=== PATIENT | male | born 1965 | race Caucasian/White ===

== ENCOUNTER 2018-01-26 14:48 | Emergency (ER) | payer OTHER ==
[~2018-01-26] VITALS: Ht 170.2 cm; Wt 104.0 kg
[~2018-01-26 14:48] MED LIST: ACET-749 PO; ALBUAER INH; DICL-201 PO; [UNRECOGNIZED DRUG - REMARK] TOP
[2018-01-26 14:51] VITALS: TEMP 36.4; Ht 170.2 cm; Wt 104.0 kg
[2018-01-26] MEDS ORDERED: SODIUM CHLORIDE 0.9% 1000ML 1,000 ML IV STA (15:12)
[2018-01-26] MEDS ORDERED: ONDANSETRON INJ 2 MG/ML 2 ML VIAL IV STA (15:12)
[2018-01-26] MEDS ORDERED: HYDROmorphone INJ 1 MG/ML SYR IV STA (15:12)
[2018-01-26] MEDS ORDERED: OPTIRAY 320 IV PRN (15:30)
[2018-01-26 15:59] LABS: BASO % 0.1 %; BASO ABS # 0.01 K/uL (0-0.2); EOS % 1.7 %; EOS ABS # 0.12 K/uL (0-0.5); HEMATOCRIT 46.7 % (42-52); HEMOGLOBIN 16.6 g/dL (14.0-18.0); IG# 0.02 K/uL (0.00-0.02); LYMPH % 14.2 %; LYMPH ABS # 1.03 K/uL (1.2-3.4); MEAN CELL VOLUME 95.5 fL (80-100); MEAN CORPUSCULAR HEMOGLOBIN 33.9 pg (25-34); MEAN CORPUSCULAR HGB CONC 35.5 g/dl (32-36); MONO % 7.6 %; MONO ABS # 0.55 K/uL (0.11-0.59); NEUT % 76.1 %; NEUT ABS # 5.53 K/uL (1.4-6.5); PLATELET COUNT 131 K/uL (130-400); RED CELL DISTRIBUTION WIDTH SD 48.6 fL (36.4-46.3); WHITE BLOOD COUNT 7.26 K/uL (4.8-10.8)
[2018-01-26 16:16] LABS: ALBUMIN 3.9 gm/dl (3.4-5.0); CALCIUM 9.4 mg/dl (8.5-10.1); CREATININE 0.92 mg/dl (0.60-1.40)
[2018-01-26 16:19] LABS: TOTAL PROTEIN 8.3 gm/dl (6.4-8.2)
[2018-01-26] MEDS ORDERED: VNTHFA/IN INH (16:59)
[2018-01-26] MEDS ORDERED: FLUT1INH INH (16:59)
[2018-01-26] MEDS ORDERED: PLV75 PO (17:04)
[2018-01-26] MEDS ORDERED: ATOR-26 PO (17:04)
[2018-01-26] MEDS ORDERED: OMEP20CA9 PO (17:04)
[2018-01-26] MEDS ORDERED: ISOS-11 PO (17:04)
[2018-01-26] MEDS ORDERED: ASPI81TA25 PO (17:05)
[2018-01-26] MEDS ORDERED: LISI-788 PO (17:05)
[2018-01-26] MEDS ORDERED: GABA-1219 PO (17:05)
[2018-01-26] MEDS ORDERED: [UNRECOGNIZED DRUG - CODE] TOP (17:05)
--- NOTE | 2018-01-26 17:36 | DIAGNOSTIC IMAGING REPORT ---
ABD/PELVIS IV CONTRAST ONLY CT DOSE: 668.49 mGy.cm HISTORY: Pain Return of umbilical bulging and pain TECHNIQUE: Multiaxial CT images of the abdomen and pelvis were performed following the use of intravenous contrast. A dose lowering technique was utilized adhering to the principles of ALARA. COMPARISON STUDY: 07/06/2016 FINDINGS: Lung bases are clear. Liver spleen and pancreas appear unremarkable. There is been a prior cholecystectomy. Kidneys enhance uniformly. Bowel pattern is remarkable for mild small bowel distention proximal and mid small bowel as well as a anastomotic line in the right mid abdominal region. A potential mild transition point is at considerable scar tissue in the periumbilical region as well as a suture line right anterior mid abdomen. Colonic bowel pattern is nonobstructive. Bladder is midline. There are postoperative changes in the mid sigmoid. A small fat-containing inguinal hernias. There is no evidence of bowel containment.. This appears to be at the site of operative repair of a small periumbilical hernia. Soft tissue extends to the a location immediately deep to the umbilicus. There is no evidence of bowel containment. The anterior abdominal wall appears to be in general intact. IMPRESSION: 1. Considerable scar tissue involving the subcutaneous fat deep to the umbilicus and periumbilical region. 2. Operative changes consistent with bowel anastomotic sites in the right mid abdomen and low pelvis. There is a transition of caliber right midabdominal anastomotic line which potentially is creating partial small bowel obstructive change. 3. Operative repair of a small periumbilical hernia with considerable postoperative scar and granulation tissue. Recurrence of the hernia is not felt to be present with a palpable abnormality potentially related to the abundant scar tissue. 4. Bilateral inguinal hernias showing no bowel containment. The above report was generated using voice recognition software. It may contain grammatical, syntax or spelling errors. Electronically signed by: Constantin Sanchez M.D. 01/26/2018 5:35 PM Dictated Date/Time: 01/26/2018 5:28 PM
[2018-01-26] MEDS ORDERED: OXYC-57 PO (18:02)
[2018-01-26 18:23] VITALS: BP 112/68; PULSE 62; O2SAT 97
--- NOTE | 2018-01-26 23:53 | EMERGENCY ROOM VISIT NOTE ---
ED Visit Note First contact with patient: 14:57 Chief Complaint: Abdominal pain. History of Present Illness: Mr. Hogue is a 52 year-old white male who ambulates into the ED complaining of left lower quadrant abdominal pain. Historically patient reports diverticulitis requiring a partial colectomy and after his colectomy he required additional ileostomy for leakage of his surgical site. Additionally he reports he had an incarcerated umbilical hernia repair in August of last year and had a subsequent abscess at his surgical site that required an I&D. Patient reports a ongoing severe abdominal pain for the last 3 days. Patient is in the left lower quadrant approximately 2-3 cm inferior to his surgical site for his umbilical hernia repair. Currently he describes his pain as a sharp twisting sensation. He rates his discomfort 10/10. His pain is nonradiating. His pain worsens with palpation and flexion at the waist. He has not identified any alleviating factors related to the pain. He reports he has been taken Tylenol without relief of his discomfort. Associated with his pain he notes he seen and lump in the area of his pain and he has had a decreased appetite and nausea without vomiting. He denies any fevers, chills, sweats, skin eruptions, skin color changes, upper respiratory tract symptoms, shortness of breath, chest pain, diarrhea, constipation, rectal bleeding, black/tarry stools, urinary symptoms, hematuria, back/flank pain. Review of Systems: As noted above in history of present illness. All body systems were reviewed and found to be negative as noted above. Past Medical History: As previously noted and asthma, hypertension, heart disease, and status post cholecystectomy. Current Medications: Medications Dose Route/Sig Max Daily Dose Days Date Category Dose Instructions Zestoretic 20MG/25MG (HCTZ/Lisinopril) Tab 0.5 Tab PO DAILY 01/26/18 Reported Betamethasone Dipropionat (Betamethasone Dip) 240 Gm Cr 1 Appln TOP BID PRN 01/26/18 Reported Gabapentin 300 Mg Cap 300 Mg PO TID 01/26/18 Reported Aspir-Low (Aspirin) 81 Mg Tab 81 Mg PO DAILY 01/26/18 Reported Prilosec (Omeprazole) 20 Mg Cap 20 Mg PO DAILY 01/26/18 Reported Isosorbide Mononitrate ER (Isosorbide Mononitrate) 30 Mg Tabcr 30 Mg PO DAILY 01/26/18 Reported Clopidogrel (Clopidogrel Bisulfate) 75 Mg Tab 75 Mg PO DAILY 01/26/18 Reported Lipitor (Atorvastatin Calcium) 80 Mg Tab 80 Mg PO QAM 01/26/18 Reported Breo Ellipta (Fluticasone Furoate-Vilanterol) 1 Inh Inh 1 Puff INH QAM 01/26/18 Reported Ventolin Hfa (Albuterol) 200 Puffs/79110 Mcg Aers 2 Puffs INH QID PRN 01/26/18 Reported Allergies to Medications: Penicillin. Social History: Patient is not employed; he feels safe in his home environment; he admits to tobacco use and denies alcohol use. Physical Examination: Vital Signs: Date Time Temp Pulse Resp B/P (MAP) Pulse Ox O2 Delivery O2 Flow Rate FiO2 01/26/18 18:23 62 20 112/68 97 01/26/18 18:11 62 20 112/68 97 Room Air 01/26/18 17:00 54 18 127/67 95 Room Air 01/26/18 14:51 36.4 63 20 152/91 98 Room Air GENERAL: 52-year-old male in moderate distress due to pain, nontoxic-appearing, afebrile and hemodynamically stable. NEUROLOGICAL: Awake, alert and oriented to person, place and time. Answering questions appropriately and following commands. Normal gait. Good hand eye coordination. SKIN: Warm, dry and pink. No soft tissue eruptions or trauma noted. HEENT: Atraumatic and normocephalic. PERRLA. Sclera white and conjunctiva pink. Oral cavity moist and pink. Pharynx is nonerythematous or edematous. Speech normal. No lymphadenopathy. Trachea midline. No jugular venous distention. BACK: No tenderness over the bony spine. No CVA tenderness. THORAX: Lungs sounds are clear to auscultation and equal bilaterally with symmetrical chest wall. No wheezing, rales or rhonchi. No crepitus, tenderness , subcutaneous air or deformities noted. HEART: Regular rate and rhythm. No gallops, rubs or murmurs are appreciated. ABDOMEN: Mildly distended with moderate tenderness in the upper portion of the left lower quadrant in the area of his previous surgery. There is a lump in this area consistent with a herniated mass. Decreased bowel sounds throughout and no bowel sounds in the area of this possible herniation. There was mild guarding on palpation but no rigidity. EXTREMITIES: Moves all extremities well on command and with purpose. All distal neurovascular statuses are intact and equal bilaterally. ED Course: Patient is assessed as noted above. Patient's medication list was reviewed. Laboratory Testing: Test 01/26/18 15:42 Range/Units White Blood Count 7.26 4.8-10.8 K/uL Red Blood Count 4.89 4.7-6.1 M/uL Hemoglobin 16.6 14.0-18.0 g/dL Hematocrit 46.7 42-52 % Mean Corpuscular Volume 95.5 80-100 fL Mean Corpuscular Hemoglobin 33.9 25-34 pg Mean Corpuscular Hemoglobin Concent 35.5 32-36 g/dl Platelet Count 131 130-400 K/uL Mean Platelet Volume 13.0 7.4-10.4 fL Neutrophils (%) (Auto) 76.1 % Lymphocytes (%) (Auto) 14.2 % Monocytes (%) (Auto) 7.6 % Eosinophils (%) (Auto) 1.7 % Basophils (%) (Auto) 0.1 % Neutrophils # (Auto) 5.53 1.4-6.5 K/uL Lymphocytes # (Auto) 1.03 1.2-3.4 K/uL Monocytes # (Auto) 0.55 0.11-0.59 K/uL Eosinophils # (Auto) 0.12 0-0.5 K/uL Basophils # (Auto) 0.01 0-0.2 K/uL RDW Standard Deviation 48.6 36.4-46.3 fL RDW Coefficient of Variation 14.0 11.5-14.5 % Immature Granulocyte % (Auto) 0.3 % Immature Granulocyte # (Auto) 0.02 0.00-0.02 K/uL Sodium Level 136 136-145 mmol/L Potassium Level 4.0 3.5-5.1 mmol/L Chloride Level 103 98-107 mmol/L Carbon Dioxide Level 26 21-32 mmol/L Anion Gap 7.0 3-11 mmol/L Blood Urea Nitrogen 10 7-18 mg/dl Creatinine 0.92 0.60-1.40 mg/dl Est Creatinine Clear Calc Drug Dose 109.2 ml/min Estimated GFR () 111.2 Estimated GFR (Non- 96.0 BUN/Creatinine Ratio 10.4 10-20 Random Glucose 104 70-99 mg/dl Calcium Level 9.4 8.5-10.1 mg/dl Total Bilirubin 1.0 0.2-1 mg/dl Direct Bilirubin 0.2 0-0.2 mg/dl Aspartate Amino Transf (AST/SGOT) 34 15-37 U/L Alanine Aminotransferase (ALT/SGPT) 49 12-78 U/L Alkaline Phosphatase 64 45-117 U/L Total Protein 8.3 6.4-8.2 gm/dl Albumin 3.9 3.4-5.0 gm/dl Lipase 83 73-393 U/L Contrast Abdominal/Pelvic CT: Was reviewed by myself and read by the radiologist showing considerable scar tissue involving the subcutaneous fat deep of the umbilicus and periumbilical region, operative changes consistent with bowel anastomosis site in the right mid abdomen and low pelvis, operative repair of a small periumbilical hernia with considerable postoperative scarring and granulated tissues but a recurrence of the hernia is not felt present at this time and bilateral inguinal hernias with no bowel contained. Additionally radiologist notes that the transition caliber in the right mid abdomen anastomosis has the potential of creating a partial small bowel obstruction. Patient was hydrated with normal saline and given 1 mg of Dilaudid IV for pain and 4 mg of Zofran IV. On my initial examination I did attempt to reduce the possible hernia site without success. When patient returned from his CT I reevaluated him and he subjectively reported he was feeling much better and when I palpated his abdomen he had resolution of his lump in the abdomen that I thought was a possible herniation. Patient's case was reviewed with Dr. Radford; we agreed on diagnostic approach , treatment, disposition and plan. Patient was educated about today's findings and instructed on his treatment plan ; he verbalized understanding and agreement with this plan. Clinical Impression: Left lower quadrant abdominal pain. Decision-Making: Umbilical hernia, diverticulitis, abdominal abscess, perforated viscus and other causes. Disposition: Patient discharged home in stable condition accompanied by female friend; prior to departure he was reassessed and subjectively reported he was pain-free. Plan: Comfort measures were discussed with the patient including a sliding pain scale of 10 minute thin and Percocet; agents name was checked on state database and no red flags are noted and he was given appropriate narcotic precautions. Patient was encouraged to stay well-hydrated with increased clear fluids. Patient was encouraged to continue his other medications as prescribed. Patient reports she has an upcoming appointment with a general surgery for reevaluation of his abdomen. Patient was encouraged to return the ED for worsening pain, reappearance of his herniation, vomiting, fevers or any new/concerning symptoms.
== END 2018-01-26 18:24 | disposition home or self-care (01) ==
LOC: C.EDB 14:50
DX: R10.32 Left lower quadrant pain (principal); Z87.19 Personal history of other diseases of the digestive system

== ENCOUNTER 2018-02-22 06:59 | Day surgery (SDC) | payer OTHER ==
[2018-02-08 13:26] VITALS: BMI 36.0
[~2018-02-22] VITALS: Ht 170.2 cm; Wt 105.9 kg
[~2018-02-22 06:59] MED LIST changes: -ACET-749 PO; -ALBUAER INH; +ASPI81TA25 PO; +ATOR-26 PO; +CLINDAMYCIN IV 900 MG in DEXTROSE 5% 50ML 44 ML IV SCH; -DICL-201 PO; +FLUT1INH INH; +GABA-1219 PO; +HEPARIN SOD 5000 UNIT/0.5 ML CARP SQ SCH; +ISOS-11 PO; +LACTATED RINGER'S 1000ML 1,000 ML IV SCH; +LISI-788 PO; +NTRGSL/4 UT; +OMEP20CA9 PO; +OXYC-57 PO; +PLV75 PO; +VNTHFA/IN INH; +[UNRECOGNIZED DRUG - CODE] TOP; -[UNRECOGNIZED DRUG - REMARK] TOP
[2018-02-22 07:16] VITALS: BP 116/79; PULSE 63; TEMP 36.4; O2SAT 96; Ht 170.2 cm; Wt 105.9 kg
--- NOTE | 2018-02-22 07:56 | History & Physical Bridge Note ---
H&P Re-Evaluation Bridge Note: I have examined the patient, reviewed the History & Physical and in the interval since the performance of the History & Physical I have noted the following changes of clinical significance: No changes noted
[2018-02-22] MEDS ORDERED: FENTANYL CITRATE INJ 50 MCG/1 ML 2 ML VIAL ONE ×2 (07:59→09:01)
[2018-02-22] MEDS ORDERED: MIDAZOLAM HCL 1 MG/ML 2ML VIAL ONE (07:59)
[2018-02-22] MEDS ORDERED: BUPIVACAINE/EPINEPHRINE 0.5% MPF 1:200,000 30 ML VIAL ONE (08:18)
[2018-02-22] MEDS ORDERED: KETOROLAC TROMETHAMINE 30 MG/ML VIAL IV. PRN (09:00)
[2018-02-22] MEDS ORDERED: ATROPINE SULFATE 0.1 MG/ML 5ML SYR IV PRN ×2 (09:00→09:45)
[2018-02-22] MEDS ORDERED: ONDANSETRON INJ 2 MG/ML 2 ML VIAL IV PRN ×3 (09:00→10:00)
[2018-02-22] MEDS ORDERED: LABETALOL HCL IV 5 MG/ML 20ML IV PRN ×2 (09:00→09:45)
[2018-02-22] MEDS ORDERED: HYDROmorphone INJ 1 MG/ML SYR IV PRN (09:00)
[2018-02-22] MEDS ORDERED: EpHEDrine SULFATE INJ 50 MG/ML AMP IV PRN ×2 (09:00→09:45)
[2018-02-22] MEDS ORDERED: MEPERIDINE HCL 25 MG/ML CARP IV PRN ×2 (09:00→09:45)
[2018-02-22] MEDS ORDERED: HYDROmorphone INJ 2 MG/ML SYR/VIAL ONE ×2 (09:42→10:21)
[2018-02-22] MEDS ORDERED: FENTANYL CITRATE INJ 50 MCG/1 ML 2 ML VIAL IV PRN (09:45)
[2018-02-22] MEDS ORDERED: HYDROmorphone INJ 2 MG/ML SYR/VIAL IV PRN (09:45)
--- NOTE | 2018-02-22 09:50 | [facility] Post Operative Brief Note ---
Immediate Operative Summary Operative Date Feb 22, 2018. Pre-Operative Diagnosis Incisional Hernia Post-Operative Diagnosis Same as preop with small bowel adhesions Procedure(s) Performed Open Incisional Hernia Repair; enterolysis Surgeon Dr. Bernal Oil Burner Surgeon(s) Rossy Coronel PA-C Estimated Blood Loss 10 ml Findings Consistent with Post-Op Diagnosis Specimens None per Surgeon Anesthesia Type General Complication(s) none
[2018-02-22] MEDS ORDERED: SODIUM CHLORIDE 0.9% 1000ML 1,000 ML IV SCH (09:56)
[2018-02-22] MEDS ORDERED: ROCURONIUM BROMIDE 10 MG/ML 5 ML VIAL IV ONE (09:58)
[2018-02-22] MEDS ORDERED: KETOROLAC TROMETHAMINE 30 MG/ML VIAL ONE (09:58)
[2018-02-22] MEDS ORDERED: LIDOCAINE HCL 2% 2 ML VIAL (20MG/ML) ONE (09:58)
[2018-02-22] MEDS ORDERED: RANITIDINE HCL 25 MG/ML INJ ONE (09:58)
[2018-02-22] MEDS ORDERED: OXYC-57 PO (09:58)
[2018-02-22] MEDS ORDERED: ONDANSETRON INJ 2 MG/ML 2 ML VIAL ONE (09:58)
[2018-02-22] MEDS ORDERED: GLYCOPYRROLATE INJ 0.2 MG/ML VIAL ONE (09:58)
[2018-02-22] MEDS ORDERED: METOCLOPRAMIDE HCL INJ 5 MG/ML 2 ML VIAL ONE (09:58)
[2018-02-22] MEDS ORDERED: NEOSTIGMINE METHYLSULFATE 5 MG/5 ML SYR ONE (09:58)
[2018-02-22] MEDS ORDERED: DEXAMETHASONE SOD INJ 4 MG/ML VIAL ONE (09:58)
[2018-02-22] MEDS ORDERED: PROPOFOL IV EMULSION 10 MG/ML 20 ML VIAL IV ONE (09:58)
[2018-02-22] MEDS ORDERED: SULF800T23 PO (09:59)
[2018-02-22] MEDS ORDERED: OXYCODONE/ACETAMINOPHEN 5-325 TAB PO PRN ×2 (10:00)
--- NOTE | 2018-02-22 10:03 | Discharge Instructions ---
Discharge Instructions Date of Service Feb 22, 2018. Admission Reason for Admission: Incisional Hernia Discharge Discharge Diagnosis / Problem: Incisional Hernia Discharge Goals Goal(s): Decrease discomfort, Improve function Activity Recommendations Activity Limitations: as noted below Lifting Limitations: no more than 10 pounds Exercise/Sports Limitations: until after follow-up appointment May Resume Sexual Activity: after follow-up appointment Shower/Bathe: tomorrow Driving or Machine Use: resume 3 days after discharge . Instructions / Follow-Up Instructions / Follow-Up You may remove your dressing after 24 hrs and remove the cotton. You have surgical glue, Dermabond, over your incision. You may shower tomorrow, but please do not soak or scrub your incision. Please continue to wear your abdominal binder until you follow-up with Dr. Bernal in the General Surgery Clinic. Please call the office at [phone] to make a follow-up appointment if you do not have one already. Please call the office with any questions or concerns. You have been prescribed an antibiotic, please take this antibiotic as prescribed and take until finished. You may resume your Clopidogrel tomorrow, 12/26/17 Current Hospital Diet Patient's current hospital diet: Discharge Diet Recommended Diet: Regular Diet Procedures Procedures Performed: Open Incisional Hernia Repair; enterolysis Pending Studies Studies pending at discharge: no Medical Emergencies . Who to Call and When: Medical Emergencies: If at any time you feel your situation is an emergency, please call 911 immediately. . Non-Emergent Contact Non-Emergency issues call your: Primary Care Provider, Surgeon Call Non-Emergent contact if: temperature is above 101.5, your pain is not controlled, wound has increased drainage, wound has increased redness . "Provider Documentation" section prepared by Rossy Coronel. . [place] Drug Monitoring Program Search Results: patient reviewed within database, no issues identified
--- NOTE | 2018-02-22 10:04 | [facility] Operative Report ---
Operative Report Operative Date Feb 22, 2018. Pre-Operative Diagnosis Incisional Hernia Post-Operative Diagnosis Same as preop with small bowel adhesions Procedure(s) Performed Open Incisional Hernia Repair; enterolysis Surgeon Dr. Bernal Ruling Technician Surgeon(s) Rossy Coronel PA-C Estimated Blood Loss 10 ml Specimens None per Surgeon Anesthesia Type General Complication(s) none Description of Procedure After informed consent was obtained the patient take to the operating room and placed in supine position. After successful intubation the abdomen was shaved and sterilely prepped and draped in usual fashion. I made an incision along his previous midline incision around the umbilicus in the area of the known hernia. This was carried down through the soft tissue using electrocautery. We did immediately encounter a hernia sac which we were able to open exposing some incarcerated small bowel. The bowel itself was not damaged but it was adhesed to the undersurface of the fascia. After excising the hernia sac I used traction countertraction and Metzenbaum scissors to take down these adhesions and eventually be able to dunk the small bowel back into the abdominal cavity. This left an approximately 2-3 cm discrete hernia defect. Th patient has a significant history of problems with prior wound infections this coupled with the fact that his abdominal wall was very thin in this area near the umbilicus led me to decide not to use a piece of mesh as the risk of skin erosion and infection outweighed the benefits. I therefore primarily close this defect using #1 Ethibond in interrupted [id number] fashion. It was relatively tension-free. Once I had this closed I thoroughly irrigated the wound. I closed in multiple layers using 2-0 Vicryl for deep layers 3-0 Vicryl for mid layers and 3-0 Monocryl for skin. Marcaine was injected around for postoperative analgesia and a sterile dressing and abdominal binder were applied. Patient was awaken extubated transferred recovery in stable condition My physician's litigation legal assistant was present for the entire case. She helped prep the patient. She helped with wound retraction throughout the case. She also helped with wound closure and dressing placement. I attest to the content of the Intraoperative Record and any orders documented therein. Any exceptions are noted below.
[2018-02-22 10:45] VITALS: BP 113/65; PULSE 63; TEMP 36.6; O2SAT 95
--- NOTE | 2018-02-22 11:12 | Anesthesiology Progress Note ---
Anesthesia Post Op Note Date & Time Feb 22, 2018 at 11:12 Vital Signs Pain Intensity: 6 Vital Signs Past 12 Hours Date Time Temp Pulse Resp B/P (MAP) Pulse Ox O2 Delivery O2 Flow Rate FiO2 02/22/18 10:45 36.6 63 18 113/65 95 Room Air 02/22/18 10:30 62 16 126/78 5 Room Air 02/22/18 10:20 68 16 122/86 99 Oxymask 7 02/22/18 10:10 65 16 132/90 98 Oxymask 7 02/22/18 10:00 36.5 67 16 143/84 98 Oxymask 7 02/22/18 07:16 36.4 63 20 116/79 (91) 96 Room Air Notes Mental Status: alert / awake / arousable, participated in evaluation Pt Amnestic to Procedure: Yes Nausea / Vomiting: adequately controlled Pain: adequately controlled Airway Patency, RR, SpO2: stable & adequate BP & HR: stable & adequate Hydration State: stable & adequate Anesthetic Complications: no major complications apparent
[2018-02-22 11:15] VITALS: BP 112/67; PULSE 67; O2SAT 95
[2018-02-22 11:33] VITALS: BP 104/64; PULSE 63; TEMP 36.5; O2SAT 96
== END 2018-02-22 12:00 | disposition home or self-care (01) ==
LOC: C.ACU 06:59
PROVIDERS: ATTEND Surgery
DX: K43.2 Incisional hernia without obstruction or gangrene (principal); K56.50 Intestinal adhesions [bands], unspecified as to partial versus complete obstruction; J45.909 Unspecified asthma, uncomplicated; I25.10 Atherosclerotic heart disease of native coronary artery without angina pectoris; I25.2 Old myocardial infarction; I10 Essential (primary) hypertension; Z88.0 Allergy status to penicillin; E78.5 Hyperlipidemia, unspecified; M19.90 Unspecified osteoarthritis, unspecified site; F32.9 Major depressive disorder, single episode, unspecified; Z90.49 Acquired absence of other specified parts of digestive tract; Z98.890 Other specified postprocedural states; F17.200 Nicotine dependence, unspecified, uncomplicated; F12.90 Cannabis use, unspecified, uncomplicated; Z79.82 Long term (current) use of aspirin; Z79.899 Other long term (current) drug therapy; Z83.3 Family history of diabetes mellitus; Z82.49 Family history of ischemic heart disease and other diseases of the circulatory system; Z80.9 Family history of malignant neoplasm, unspecified